=== PATIENT | female | born 1950 | race Two or more races ===

== ENCOUNTER 2022-03-17 21:52 | Inpatient (IN) | payer OTHER ==
[~2022-03-17] VITALS: Ht 167.6 cm; Wt 61.2 kg
[~2022-03-17 21:52] MED LIST: OSEL75CA PO; TUSSI PRES-B L120 M1 PO
[2022-03-17] MEDS ORDERED: TYLENOL (22:48)
[2022-03-22] MEDS ORDERED: TYLENOL325 MG (15:54)
== END 2022-03-22 22:13 | disposition home or self-care (01) | DRG 195 ==
LOC: ER 21:52 → SEC-K 03-18 12:25 → MEDJ 03-19 12:54 → MEDI 03-19 13:27 → MEDJ 03-20 09:06
PROVIDERS: ADMIT Internal Medicine; ATTEND Internal Medicine
DX: J18.0 Bronchopneumonia, unspecified organism (principal); R09.02 Hypoxemia; D72.829 Elevated white blood cell count, unspecified; D72.0 Genetic anomalies of leukocytes